=== PATIENT | male | born 1935 | race Hispanic/Latino ===

== ENCOUNTER 2021-01-30 22:48 | Emergency (ER) | payer MEDICARE, OTHER ==
[~2021-01-30 22:48] MED LIST: Iopamidol-370 76% 500 ML 1 ML ONE
[2021-01-30 23:44] LABS: #Eosinphils 0.1 thou/uL (0.0-0.7); #Lymphocytes 1.4 thou/uL (1.20-3.40); #Monocytes 0.4 thou/uL (0.11-0.59); #Neutrophils 5.3 thou/uL (1.40-6.50); %Eosinophils 1.6 % (0.0-10.0); %Lymphocytes 19.6 % (21.0-51.0); %Monocytes 4.9 % (0.0-10.0); %Neutrophils 73.8 % (42.0-75.0); Hemoglobin 10.8 g/dL (14.0-18.0); Mean Corpuscular HGB CONC 33.2 g/dL (32.0-36.0); Mean Corpuscular Volume 96.5 fL (78.0-98.0); Mean Platelet Volume 7.4 fL (7.4-10.4); Platelet Count 247 thou/uL (130-400); RBC Distribution Width 12.6 % (11.5-14.5); Red Blood Cell (RBC) Count 3.37 mill/uL (4.70-6.10); White Blood Cell (WBC) Count 7.2 thou/uL (4.8-10.8)
[2021-01-31 00:07] LABS: AST (SGOT) 14 U/L (5-34); Albumin 3.8 g/dL (3.4-4.8); Alkaline Phosphatase 76 U/L (40-110); Anion Gap 12 mmol/L (10-20); BUN (Urea Nitrogen) 30 mg/dL (8.4-25.7); Bilirubin, Total 0.5 mg/dL (0.2-1.2); Calc. Creatinine Clearance 0 mL/min (70-130); Calcium 9.1 mg/dL (7.8-10.44); Carbon Dioxide 30 mmol/L (23-31); Chloride 95 mmol/L (98-107); Globulin 3.4 g/dL (2.4-3.5); Glucose 117 mg/dL (83-110); Potassium 3.7 mmol/L (3.5-5.1); Protein, Total 7.2 g/dL (5.8-8.1); Sodium 133 mmol/L (136-145)
[2021-01-31 00:24] LABS: ALT (SGPT) Less than 7 U/L (8-55)
[2021-01-31 02:34] LABS: Bilirubin Negative (Negative); Blood, Urine Negative (Negative); Glucose, Urine (Dipstick) Negative (Negative); Ketone, Urine Negative (Negative); Leukocyte Negative (Negative); Nitrite Negative (Negative); Protein, Urine (Dipstick) Negative (Neg-Trace); Urobilinogen 0.2 mg/dL (Less than 2)
[2021-01-31 02:36] LABS: Bacteria/HPF None Seen HPF (None Seen); RBC/HPF None Seen HPF (0-3); Squamous Epithelial None Seen HPF (0-3); WBC/HPF None Seen HPF (0-3)
[2021-01-31 02:37] LABS: Clarity Clear (Clear); Specific Gravity, Urine Less than 1.000 (1.002-1.036)
== END 2021-01-31 04:39 | disposition home or self-care (01) ==
LOC: ERS 22:48
DX: K59.00 Constipation, unspecified (principal); E11.9 Type 2 diabetes mellitus without complications; E78.5 Hyperlipidemia, unspecified; I10 Essential (primary) hypertension
CPT/HCPCS: 36415; 74177; 80053; 81003; 83690; 85025; Q9967

== ENCOUNTER 2023-04-26 14:20 | Inpatient (IN) | payer MEDICARE, BC ==
[2023-04-26] MEDS ORDERED: Iopamidol-370 76% 500 ML MDV (1 ML CHARGE) ONE (14:27)
[2023-04-26 15:27] LABS: #Monocytes 0.2 thou/uL (0.11-0.59); #Neutrophils 4.2 thou/uL (1.40-6.50); %Basophils 0.2 % (0.0-1.0); %Lymphocytes 10.2 % (21.0-51.0); %Monocytes 3.9 % (0.0-10.0); %Neutrophils 85.3 % (42.0-75.0); Hematocrit 30.2 % (42.0-52.0); Hemoglobin 9.8 g/dL (14.0-18.0); Mean Corpuscular HGB CONC 32.5 g/dL (32.0-36.0); Mean Corpuscular Hemoglobin 26.3 pg (27.0-31.0); Mean Platelet Volume 9.1 fL (7.4-10.4); Platelet Count 236 10x3/uL (130-400); RBC Distribution Width 16.3 % (11.5-14.5); Red Blood Cell (RBC) Count 3.73 mill/uL (4.70-6.10); White Blood Cell (WBC) Count 4.9 10x3/uL (4.8-10.8)
[2023-04-26 15:52] LABS: ALT (SGPT) Less than 7 U/L (8-55); AST (SGOT) 58 U/L (5-34); Albumin 3.2 g/dL (3.4-4.8); Alkaline Phosphatase 144 U/L (40-110); Anion Gap 17 mmol/L (10-20); BUN (Urea Nitrogen) 42 mg/dL (8.4-25.7); Bilirubin, Total 0.3 mg/dL (0.2-1.2); Calc. Creatinine Clearance 0 mL/min (70-130); Calcium 8.9 mg/dL (7.8-10.44); Carbon Dioxide 26 mmol/L (23-31); Chloride 94 mmol/L (98-107); Estimated GFR 44; Globulin 3.6 g/dL (2.4-3.5); Glucose 176 mg/dL (83-110); Magnesium 1.7 mg/dL (1.6-2.6); Potassium 3.6 mmol/L (3.5-5.1); Protein, Total 6.8 g/dL (5.8-8.1); Sodium 133 mmol/L (136-145)
[2023-04-26 15:56] LABS: Troponin I 0.025 ng/mL (< 0.028)
[2023-04-26] MEDS ORDERED: cefTRIAXone (ROCEPHIN) 2 GM VIAL ONE (16:58)
[2023-04-26 17:19] LABS: Bacteria/HPF None Seen HPF (None Seen); Bilirubin Negative (Negative); Blood, Urine 1+ (Negative); CAUTI Indications for Culture Alt mental st,lethar; Clarity Turbid (Clear); Glucose, Urine (Dipstick) Normal (Negative); Ketone, Urine Negative (Negative); Leukocyte Negative Leu/uL (Negative); Nitrite Negative (Negative); Protein, Urine (Dipstick) 70 mg/dL (Neg-Trace); RBC/HPF 0-3 HPF (0-3); Specific Gravity, Urine 1.017 (1.002-1.036); Squamous Epithelial 0-3 HPF (0-3); Urobilinogen Normal mg/dL (Less than 2); WBC/HPF 0-3 HPF (0-3); pH, Urine 5.5 (5.0-9.0)
[2023-04-26 17:34] LABS: Urine Culture Reflex No No
[2023-04-26] MEDS ORDERED: Azithromycin 500 MG VIAL ONE (17:34)
[2023-04-26 17:39] LABS: SARS-CoV-2 NAA Rapid Test Not Detected (NotDetected)
[2023-04-26] MEDS ORDERED: Acetaminophen 650 MG Suppository PR PRN (20:16)
[2023-04-26] MEDS ORDERED: Ondansetron ODT 4 MG TAB PO PRN (20:16)
[2023-04-26] MEDS ORDERED: Dextrose 5% in Water 1,000 ML IV PRN (20:16)
[2023-04-26] MEDS ORDERED: Glucagon 1 MG/ML KIT IM PRN (20:16)
[2023-04-26] MEDS ORDERED: HumaLOG 300 UNITS/3 ML VIAL SC PRN ×2 (20:16)
[2023-04-26] MEDS ORDERED: Dextrose 50% Abboject 50 ML SYRINGE SLOW IVP PRN (20:16)
[2023-04-26] MEDS ORDERED: Ondansetron PF 4 MG/2 ML Vial IVP PRN (20:16)
[2023-04-26] MEDS ORDERED: Communication Order-Pharmacy FS ONE (20:18)
[2023-04-26] MEDS ORDERED: Sodium Chloride 0.9% 1,000 ML IV SCH (20:30)
[2023-04-26] MEDS ORDERED: Doxycycline 100 MG CAP PO SCH (21:00)
[2023-04-26] MEDS: Ampicillin/Sulbactam 3 GM in Sodium Chloride 0.9% 100 ML IVPB SCH (22:30)
[2023-04-26] MEDS: Carbidopa/Levodopa 25-100 mg Tablet PO SCH (22:32)
[2023-04-26] MEDS: Gabapentin 100 MG CAP PO SCH (22:33)
[2023-04-26] MEDS: Famotidine 20 MG TAB PO SCH (22:34)
[2023-04-27 04:59] LABS: #Monocytes 0.3 thou/uL (0.11-0.59); %Basophils 0.2 % (0.0-1.0); %Eosinophils 0.4 % (0.0-10.0); %Lymphocytes 15.6 % (21.0-51.0); %Neutrophils 77.4 % (42.0-75.0); Hematocrit 32.7 % (42.0-52.0); Hemoglobin 10.7 g/dL (14.0-18.0); Mean Corpuscular HGB CONC 32.7 g/dL (32.0-36.0); Mean Corpuscular Hemoglobin 26.6 pg (27.0-31.0); Mean Corpuscular Volume 81.3 fl (78.0-98.0); Mean Platelet Volume 9.4 fL (7.4-10.4); Platelet Count 237 10x3/uL (130-400); RBC Distribution Width 16.4 % (11.5-14.5); Red Blood Cell (RBC) Count 4.02 mill/uL (4.70-6.10); White Blood Cell (WBC) Count 5.1 10x3/uL (4.8-10.8)
[2023-04-27 05:28] LABS: ALT (SGPT) 8 U/L (8-55); AST (SGOT) 62 U/L (5-34); Albumin 3.1 g/dL (3.4-4.8); Alkaline Phosphatase 138 U/L (40-110); Anion Gap 13 mmol/L (10-20); BUN (Urea Nitrogen) 32 mg/dL (8.4-25.7); Bilirubin, Total 0.2 mg/dL (0.2-1.2); CRP (Inflammatory) 10.73 mg/dL (= or < 0.5); Calc. Creatinine Clearance 35 mL/min (70-130); Carbon Dioxide 31 mmol/L (23-31); Chloride 95 mmol/L (98-107); Estimated GFR 64; Globulin 3.9 g/dL (2.4-3.5); Glucose 87 mg/dL (83-110); Magnesium 1.7 mg/dL (1.6-2.6); Potassium 3.5 mmol/L (3.5-5.1); Sodium 135 mmol/L (136-145)
[2023-04-27] MEDS: Doxycycline 100 MG CAP PO SCH ×2 (06:11→17:27)
[2023-04-27] MEDS: Carbidopa/Levodopa 25-100 mg Tablet PO SCH ×3 (06:11→17:27)
[2023-04-27] MEDS: Ampicillin/Sulbactam 3 GM in Sodium Chloride 0.9% 100 ML IVPB SCH ×2 (08:50→21:25)
[2023-04-27] MEDS: Ferrous Gluconate 324 MG TAB PO SCH (09:40)
[2023-04-27 09:55] VITALS: BMI 19.3
[2023-04-27 18:06] LABS: Legionella Urinary Ag Negative (Negative); Strep pneumo Urine Ag NEGATIVE (NEGATIVE)
[2023-04-27] MEDS: Gabapentin 100 MG CAP PO SCH (21:27)
[2023-04-27] MEDS: Famotidine 20 MG TAB PO SCH (21:27)
[2023-04-28] MEDS: Carbidopa/Levodopa 25-100 mg Tablet PO SCH ×5 (01:00→23:53)
[2023-04-28] MEDS: Doxycycline 100 MG CAP PO SCH ×2 (06:22→17:54)
[2023-04-28] MEDS: Ampicillin/Sulbactam 3 GM in Sodium Chloride 0.9% 100 ML IVPB SCH ×2 (08:37→20:50)
[2023-04-28] MEDS: Ferrous Gluconate 324 MG TAB PO SCH ×2 (08:44→08:46)
[2023-04-28] MEDS: Apixaban 5 MG TAB PO SCH (20:49)
[2023-04-28] MEDS: Gabapentin 100 MG CAP PO SCH (20:50)
[2023-04-28] MEDS: Famotidine 20 MG TAB PO SCH (20:50)
[2023-04-29] MEDS: Doxycycline 100 MG CAP PO SCH ×2 (06:22→18:07)
[2023-04-29] MEDS: Carbidopa/Levodopa 25-100 mg Tablet PO SCH ×4 (06:22→23:57)
[2023-04-29 08:47] LABS: #Monocytes 0.3 thou/uL (0.11-0.59); #Neutrophils 3.1 thou/uL (1.40-6.50); %Basophils 0.2 % (0.0-1.0); %Eosinophils 0.2 % (0.0-10.0); %Lymphocytes 20.1 % (21.0-51.0); %Monocytes 6.7 % (0.0-10.0); %Neutrophils 72.1 % (42.0-75.0); Hematocrit 29.5 % (42.0-52.0); Hemoglobin 9.6 g/dL (14.0-18.0); Mean Corpuscular HGB CONC 32.5 g/dL (32.0-36.0); Mean Corpuscular Hemoglobin 26.4 pg (27.0-31.0); Mean Corpuscular Volume 81.3 fl (78.0-98.0); Mean Platelet Volume 9.8 fL (7.4-10.4); Platelet Count 182 10x3/uL (130-400); RBC Distribution Width 16.5 % (11.5-14.5); Red Blood Cell (RBC) Count 3.63 mill/uL (4.70-6.10); White Blood Cell (WBC) Count 4.3 10x3/uL (4.8-10.8)
[2023-04-29] MEDS: Acetaminophen 325 MG TAB PO PRN (09:44)
[2023-04-29] MEDS: Apixaban 5 MG TAB PO SCH ×2 (09:45→21:37)
[2023-04-29] MEDS: Ferrous Gluconate 324 MG TAB PO SCH (09:45)
[2023-04-29] MEDS: Ampicillin/Sulbactam 3 GM in Sodium Chloride 0.9% 100 ML IVPB SCH ×3 (09:46→21:38)
[2023-04-29 09:47] LABS: Anion Gap 9 mmol/L (10-20); BUN (Urea Nitrogen) 21 mg/dL (8.4-25.7); Calc. Creatinine Clearance 43 mL/min (70-130); Calcium 8.4 mg/dL (7.8-10.44); Carbon Dioxide 29 mmol/L (23-31); Chloride 99 mmol/L (98-107); Estimated GFR 83; Glucose 178 mg/dL (83-110); Magnesium 1.4 mg/dL (1.6-2.6); Phosphorus 2.5 mg/dL (2.3-4.7); Potassium 3.3 mmol/L (3.5-5.1); Sodium 134 mmol/L (136-145)
[2023-04-29] MEDS ORDERED: Potassium Chloride 20 MEQ TAB PO SCH (10:15)
[2023-04-29] MEDS ORDERED: Magnesium 2 GM/50 ML(in water) 2 GM in Premix Bag 1 BAG IVPB SCH (11:00)
[2023-04-29] MEDS: Famotidine 20 MG TAB PO SCH (21:37)
[2023-04-29] MEDS: Gabapentin 100 MG CAP PO SCH (21:37)
[2023-04-30] MEDS: Ampicillin/Sulbactam 3 GM in Sodium Chloride 0.9% 100 ML IVPB SCH ×2 (04:40→10:33)
[2023-04-30] MEDS: Carbidopa/Levodopa 25-100 mg Tablet PO SCH ×4 (04:53→23:56)
[2023-04-30] MEDS: Doxycycline 100 MG CAP PO SCH (04:53)
[2023-04-30 09:57] LABS: Anion Gap 13 mmol/L (10-20); BUN (Urea Nitrogen) 19 mg/dL (8.4-25.7); Calc. Creatinine Clearance 42 mL/min (70-130); Calcium 8.6 mg/dL (7.8-10.44); Carbon Dioxide 28 mmol/L (23-31); Chloride 99 mmol/L (98-107); Estimated GFR 82; Glucose 172 mg/dL (83-110); Magnesium 1.6 mg/dL (1.6-2.6); Phosphorus 2.8 mg/dL (2.3-4.7); Potassium 3.7 mmol/L (3.5-5.1); Sodium 136 mmol/L (136-145)
[2023-04-30] MEDS: Acetaminophen 325 MG TAB PO PRN ×2 (10:33→21:00)
[2023-04-30] MEDS: Apixaban 5 MG TAB PO SCH ×2 (10:33→20:52)
[2023-04-30] MEDS: Ferrous Gluconate 324 MG TAB PO SCH (10:33)
[2023-04-30] MEDS ORDERED: Piperacillin/Tazobactam 3.375 GM in Sodium Chloride 0.9% 100 ML IVPB SCH (14:00)
[2023-04-30] MEDS: Piperacillin/Tazobactam 3.375 GM in Sodium Chloride 0.9% 100 ML IVPB SCH (18:25)
[2023-04-30] MEDS: Famotidine 20 MG TAB PO SCH (20:52)
[2023-04-30] MEDS: Gabapentin 100 MG CAP PO SCH (20:52)
[2023-05-01] MEDS: Piperacillin/Tazobactam 3.375 GM in Sodium Chloride 0.9% 100 ML IVPB SCH ×3 (01:19→18:08)
[2023-05-01] MEDS: Acetaminophen 325 MG TAB PO PRN ×3 (03:48→20:14)
[2023-05-01 05:21] LABS: #Eosinphils 0.1 thou/uL (0.0-0.7); #Monocytes 0.3 thou/uL (0.11-0.59); #Neutrophils 3.7 thou/uL (1.40-6.50); %Basophils 0.2 % (0.0-1.0); %Eosinophils 2.1 % (0.0-10.0); %Lymphocytes 21.8 % (21.0-51.0); %Monocytes 5.5 % (0.0-10.0); %Neutrophils 69.8 % (42.0-75.0); Hematocrit 29.5 % (42.0-52.0); Hemoglobin 9.4 g/dL (14.0-18.0); Mean Corpuscular HGB CONC 31.9 g/dL (32.0-36.0); Mean Corpuscular Hemoglobin 26.1 pg (27.0-31.0); Mean Corpuscular Volume 81.9 fl (78.0-98.0); Mean Platelet Volume 10.3 fL (7.4-10.4); Platelet Count 190 10x3/uL (130-400); White Blood Cell (WBC) Count 5.3 10x3/uL (4.8-10.8)
[2023-05-01] MEDS: Carbidopa/Levodopa 25-100 mg Tablet PO SCH ×4 (05:31→23:27)
[2023-05-01 05:40] LABS: Anion Gap 12 mmol/L (10-20); BUN (Urea Nitrogen) 22 mg/dL (8.4-25.7); Calc. Creatinine Clearance 39 mL/min (70-130); Calcium 8.7 mg/dL (7.8-10.44); Carbon Dioxide 29 mmol/L (23-31); Chloride 103 mmol/L (98-107); Estimated GFR 74; Glucose 123 mg/dL (83-110); Potassium 3.6 mmol/L (3.5-5.1); Sodium 140 mmol/L (136-145)
[2023-05-01] MEDS: Ferrous Gluconate 324 MG TAB PO SCH (09:47)
[2023-05-01] MEDS: Apixaban 5 MG TAB PO SCH ×2 (09:49→20:15)
[2023-05-01] MEDS ORDERED: hydrALAZINE 25 MG TAB PO PRN (18:26)
[2023-05-01] MEDS: Gabapentin 100 MG CAP PO SCH (20:16)
[2023-05-01] MEDS: Famotidine 20 MG TAB PO SCH (20:16)
[2023-05-02] MEDS: Piperacillin/Tazobactam 3.375 GM in Sodium Chloride 0.9% 100 ML IVPB SCH ×3 (01:38→17:25)
[2023-05-02 04:54] LABS: #Eosinphils 0.2 thou/uL (0.0-0.7); #Monocytes 0.5 thou/uL (0.11-0.59); #Neutrophils 4.1 thou/uL (1.40-6.50); %Basophils 0.3 % (0.0-1.0); %Eosinophils 2.4 % (0.0-10.0); %Lymphocytes 23.3 % (21.0-51.0); %Monocytes 7.3 % (0.0-10.0); %Neutrophils 66.4 % (42.0-75.0); Hematocrit 30.3 % (42.0-52.0); Hemoglobin 9.7 g/dL (14.0-18.0); Mean Corpuscular Volume 81.2 fl (78.0-98.0); Mean Platelet Volume 10.2 fL (7.4-10.4); Platelet Count 200 10x3/uL (130-400); RBC Distribution Width 17.1 % (11.5-14.5); Red Blood Cell (RBC) Count 3.73 mill/uL (4.70-6.10); White Blood Cell (WBC) Count 6.2 10x3/uL (4.8-10.8)
[2023-05-02] MEDS: Carbidopa/Levodopa 25-100 mg Tablet PO SCH ×3 (05:17→17:25)
[2023-05-02 05:19] LABS: Anion Gap 12 mmol/L (10-20); BUN (Urea Nitrogen) 23 mg/dL (8.4-25.7); Calc. Creatinine Clearance 40 mL/min (70-130); Calcium 8.7 mg/dL (7.8-10.44); Carbon Dioxide 29 mmol/L (23-31); Chloride 102 mmol/L (98-107); Estimated GFR 77; Glucose 122 mg/dL (83-110); Potassium 3.5 mmol/L (3.5-5.1); Sodium 139 mmol/L (136-145)
[2023-05-02] MEDS: Ferrous Gluconate 324 MG TAB PO SCH (08:28)
[2023-05-02] MEDS: Apixaban 5 MG TAB PO SCH ×2 (08:28→21:53)
[2023-05-02] MEDS: Acetaminophen 325 MG TAB PO PRN (21:52)
[2023-05-02] MEDS: Famotidine 20 MG TAB PO SCH (21:53)
[2023-05-02] MEDS: Gabapentin 100 MG CAP PO SCH (21:54)
[2023-05-03] MEDS: Carbidopa/Levodopa 25-100 mg Tablet PO SCH ×3 (00:20→12:06)
[2023-05-03] MEDS: Piperacillin/Tazobactam 3.375 GM in Sodium Chloride 0.9% 100 ML IVPB SCH ×2 (02:28→09:54)
[2023-05-03] MEDS: Apixaban 5 MG TAB PO SCH (09:54)
[2023-05-03] MEDS: Ferrous Gluconate 324 MG TAB PO SCH (09:54)
[2023-05-03 16:24] VITALS: BP 161/66; TEMP 97.3
[2023-05-05] MEDS ORDERED: Apixaban 5 MG TAB PO SCH (21:00)
== END 2023-05-03 16:05 | DRG 177 ==
LOC: ERS 14:20 → T4-A 17:43 → OBSVTOIN 17:43 → INTOOBSV 17:43 → 2NO 20:52
PROVIDERS: ADMIT Hospitalist; ATTEND Internal Medicine
DX: J69.0 Pneumonitis due to inhalation of food and vomit (principal); E43 Unspecified severe protein-calorie malnutrition; I26.99 Other pulmonary embolism without acute cor pulmonale; N17.9 Acute kidney failure, unspecified; Z68.1 Body mass index [BMI] 19.9 or less, adult; J15.6 Pneumonia due to other Gram-negative bacteria; E11.9 Type 2 diabetes mellitus without complications; I10 Essential (primary) hypertension; G20 Parkinson's disease; N40.0 Benign prostatic hyperplasia without lower urinary tract symptoms; R53.1 Weakness; R13.10 Dysphagia, unspecified; Z20.822 Contact with and (suspected) exposure to COVID-19; Z88.5 Allergy status to narcotic agent; Z79.899 Other long term (current) drug therapy; Z98.890 Other specified postprocedural states; Z82.49 Family history of ischemic heart disease and other diseases of the circulatory system; Z87.891 Personal history of nicotine dependence
CPT/HCPCS: 36415; 36416; 70450; 71045; 71275; 74177; 74230; 80048; 80053; 81001; 83605; 83735; 83880; 84100; 84145; 84484; 85025; 86140; 86850; 86900; 86901; 87040; 87081; 87086; 87103; 87449; 87633; 87899; 93005; 93306; 96365; 96367; J0295; J0456; J0696; J1650; J2543; J3475; J3490; J7050; Q9967; U0002